=== PATIENT | female | born 2000 | race Caucasian/White ===

== ENCOUNTER 2025-08-21 11:28 | Outpatient (AMB) | payer OTHER, SELFPAY ==
--- OUTSIDE RECORDS SUMMARY | 2020-01-12 01:00 | XMS_ITS | Encounter Summary ---
Author Organization [facility] Address [address] [place] [address] Care Team Providers Care Websphere Message Broker Developer Name Role Phone Unavailable Primary Care Provider Unavailabl e Encounter Details Date Type Department Care Team (Latest Contact Info) Description 01/12/2020 Hospital Encounter TH HISTORIC ENCOUNTERS EASTERN CONVERSION ONLY Jesenia Palmer MD [address] [place] [address] Hyperprolactinemia (CMS/HCC V24) Social History [...] AM EST documented as of this encounter Plan of Treatment Not on file documented as of this encounter Procedures Procedure Name Priority Date/Time Associated Diagnosis Comments MR BRAIN WO AND W CONTRAST ([id number]) Routine 02/01/2020 9:00 PM EST documented in this encounter Results * MR BRAIN WO AND W CONTRAST ([id number]) (02/01/2020 9:00 PM EST) Anatomical Region Laterality Modality Magnetic Resonan ce 01/12/2020 3:30 PM EST Narrative 02/01/2020 9:01 PM EST EXAMINATION: [phone] - MR BRAIN W/O AND W CONT [...] Note Tyshawn Davis MD - 12/06/2020 EXAMINATION: [phone] - MR BRAIN W/O AND W CONT [...] Jan 12 2020 3:47P Jesenia Palmer MD IMG MRI PROCEDURES Final Resu lt documented in this encounter Visit Diagnoses Diagnosis Hyperprolactinemia (CMS/HCC V24) Other and unspecified anterior pituitary hyperfunction documented in this encounter
--- NOTE | 2025-08-21 11:32 | MHC.PC.OV ---
Vital Signs 08/21/25 11:38 Height 5 ft 11 in Weight 258 lb BMI 36.0 BP 114/90 H Blood Pressure Location Lt brachial Position Sitting Respiration 16 Pulse 104 H Pulse Source Pulse Oximeter Temp 97.2 F Temp Source Temporal Artery Scan Pulse Oximetry (%) 98 Oxygen Delivery Method Room Air Intake Visit Reasons: NEW PT Newsagent Required: No Accompanied by: Self / Same As Patient Allergies No Known Allergies Allergy (Verified 08/21/25 11:33) Medication List - Last Reconciled 08/21/25 by Olaf Taylor MD fluoxetine 20 mg PO DAILY hydroxyzine HCl 50 mg PO .qd PRN naltrexone microspheres ER (Vivitrol) 380 mg IM QMONTH Tobacco use date assessed: 08/21/25 Dental Screening Dental Screen Date: 08/21/25 Did you have a dental visit in the last 12 months?: Yes Did you have a dental problem in the last 6 months where you did not have access to dental care?: No Was dental information given to patient?: Patient has dentist HPI HPI Comments History of Present Illness Details The patient is a 25-year-old female presenting for the establishment of primary care services and management of her current medical conditions. The patient reports having been diagnosed with multiple concussions secondary to participating in sports such as basketball, softball, and volleyball, with the initial concussion occurring at age 16 and the most recent one approximately three to four months ago. As a result, she experiences persistent post-concussion syndrome, which includes symptoms of nausea and frequent headaches. She has a history of anxiety disorder and major depressive disorder. The patient reports current treatment with fluoxetine 20 mg and hydroxyzine as needed. Despite this, she scores high in depression and anxiety screening, indicating persistent mood and anxiety symptoms. In addition to her psychiatric history, she reports a history of substance use disorder, specifically benzodiazepines and alcohol. She has been sober for 45 days after attending a rehabilitation program following a relapse. There is no significant surgical history nor known allergies reported by the patient. Medical History: - Multiple concussions with post-concussion syndrome - Anxiety disorder - Major depressive disorder - Substance use disorder: benzodiazepines and alcohol Surgical History: - No prior surgical procedures Medications: - Fluoxetine 20 mg for depression and anxiety - Hydroxyzine as needed for anxiety - Monthly Vivitrol (naltrexone) injection for substance use disorder Family History: - Heart disease on both paternal and maternal sides - Type 2 diabetes on maternal side - No family history of cancer reported Social: - Currently couch-surfing; no stable housing - Seeking entry into sober living - Unemployed and actively looking for a job; interested in further education - History of tobacco use; currently vaping - Substance use history: past use of benzodiazepines (primarily Xanax) and alcohol, with a reported high quantity of alcohol consumption prior to sobriety - On EBT assistance for food [facility] Medical History (Updated 08/21/25 @ 11:57 by Olaf Taylor MD) Nondependent alcohol abuse, in remission Benzodiazepine abuse in remission Post concussion syndrome Homelessness Anxiety and depression Social History Housing: Homeless Housing Other:: couch surfing-want to get into sober living-applying Patient Tobacco Use Status: Never used Tobacco e-Cigarette/Vaping Use: Currently Using service: No Current occupational status: unemployed Questionnaire PHQ-9 Over the last 2 weeks, how often have you been bothered by any of the following problems? 1. Little interest or pleasure in doing things: more than half the days 2. Feeling down, depressed, or hopeless: more than half the days 3. Trouble falling or staying asleep, or sleeping too much: nearly every day 4. Feeling tired or having little energy: more than half the days 5. Poor appetite or overeating: more than half the days 6. Feeling bad about yourself - or that you are a failure or have let yourself or your family down: more than half the days 7. Trouble concentrating on things, such as reading the newspaper or watching television: more than half the days 8. Moving or speaking so slowly that other people could have noticed. Or the opposite - being so fidgety or restless that you have been moving around a lot more than usual: not at all 9. Thoughts that you would be better off or of hurting yourself in some way: several days Total score: 16 Depression Screening Interpretation: Positive Depression Screening Done: Yes 39697 - PHQ-9 Billing: Yes (Currently on Fluoxetine) Source: Developed by Drs. Andi Gross, Nadja Lovett, Jignesh Bajwa and colleagues, with an educational kameron from [employer]. Thrive Questionnaire Date Thrive assessed: 08/21/25 I am a: Patient What is your living situation today?: I do not have a steady places to live Within the past 12 months, did the food you bought not last and you didn't have the money to get more?: Never true Within the past 12 months, did you worry whether your food would run out before you got money to buy more?: Never true Do you have trouble paying for medicines?: No Do you have trouble getting transportation to medical appointments?: No Do you have trouble paying your heating and electricity bill?: No Do you have trouble taking care of your child, family member or friend?: No Do you have trouble with day-to-day activities such as bathing, preparing meals, shopping, managing finances, etc.?: Yes Are you currently unemployed and looking for a job?: Yes Are you interested in more education?: Yes Please select the resources that you would like help with: Housing/[facility] THRIVE Score: 1 AUDIT C Alcohol Use Questionnaire (AUDIT-C) 1. How often do you have a drink containing alcohol?: Never 3. How often do you have six or more drinks on one occasion?: Never Total Score: 0 Score Reviewed/Action Taken: Yes COREY-7 AMB Questionnaire COREY-7 Date COREY - 7 assessed: 08/21/25 Feeling nervous, anxious, or on edge: 3 = Nearly every day Not being able to stop or control worryin = Nearly every day Worrying too much about different things: 3 = Nearly every day Trouble relaxin = Nearly every day Being so restless that it is hard to sit still: 3 = Nearly every day Becoming easily annoyed or irritable: 3 = Nearly every day Feeling afraid as if something awful might happen: 3 = Nearly every day Total COREY-7 score (0-4 normal; 5-9 mild; 10-14 moderate; 15-21 severe): 21 Source: Developed by Drs. Andi Gross, Nadja Lovett, Jignesh Bajwa and colleagues, with an educational kameron from [employer]. COREY-7 Assessment Billing COREY-7 Assessment Tool: COREY-7 Assessment 33562 Review of Systems Const Details: - Neurologic: Reports persistent headaches - Gastrointestinal: Reports consistent nausea - Respiratory: Denies shortness of breath - Cardiovascular: Denies chest pain - Psychological: Reports feeling down, hopeless, and experiencing low energy; denies current thoughts of self-harm, but there have been recent thoughts of self-harm - Sleep: Reports trouble falling or staying asleep nearly every day - Genitourinary: No genitourinary symptoms reported All systems reviewed & are unremarkable except as reviewed in HPI and above Physical exam (Primary Care) Vital Signs: Last Vital Signs Temp 97.2 F 08/21/25 11:38 Pulse 104 H 08/21/25 11:38 Resp 16 08/21/25 11:38 BP 114/90 H 08/21/25 11:38 Pulse Ox 98 08/21/25 11:38 Oxygen Delivery Method Room Air 08/21/25 11:38 BMI result Body Mass Index 36.0 Tobacco/Smoking Status: Tobacco use Status Tobacco use date assessed 08/21/25 08/21/25 11:40 Patient Tobacco Use Status Never used Tobacco 08/21/25 11:40 e-Cigarette/Vaping Use Currently Using 08/21/25 11:40 PHQ-9: PHQ-9 Score PHQ-9: Total score 16 08/21/25 11:51 Depression Screening Interpretation: Positive Thrive Assessment: Date of Thrive Assessment Date Thrive assessed 08/21/25 08/21/25 11:51 Const Other: General: Alert and oriented, Well nourished, No acute distress. Eye: Pupils are equal, round and reactive to light, Intact accommodation, Extraocular movements are intact, Normal conjunctiva, Vision unchanged. HENT: Normocephalic, Atraumatic, Tympanic membranes are clear, Normal hearing, Oral mucosa is moist, No pharyngeal erythema, Ear canals patent. Respiratory: Lungs CTA bilaterally, No wheeze, Respirations are non-labored. Cardiovascular: Regular rate, Regular rhythm, S1 auscultated, S2 auscultated, No murmur, Good pulses equal in all extremities, Normal peripheral perfusion, No edema. Gastrointestinal: Soft, Non-tender, Non-distended, Normal bowel sounds, No organomegaly. Musculoskeletal: Normal range of motion, Normal strength, No tenderness, No swelling, No deformity, Normal gait. Integumentary: Warm, Dry, Forest, Intact. Neurologic: Alert, Oriented, Normal sensory, Normal motor function, No focal defects, Cranial Nerves II-XII are grossly intact, Normal deep tendon reflexes. Psychiatric: Cooperative, Appropriate mood & affect, Normal judgment. Coding Level of Care Code New Pt Level 3 (00250) Complex EM visit Add On G2211 Diagnoses Anxiety and depression F41.9; F32.A Homelessness Z59.00 Post concussion syndrome F07.81 Benzodiazepine abuse in remission F13.11 Nondependent alcohol abuse, in remission F10.11 Additional Codes COREY-7 Assessment Billing - COREY-7 Assessment Tool: COREY-7 Assessment 16169 ([id number]) PHQ-9 - 20262 - PHQ-9 Billing: Yes ([id number]) Assessment & Plan Assessment & Plan (1) Anxiety and depression: Comment: - Current medication regimen includes fluoxetine and hydroxyzine. - Plan to consult psychiatry for a more detailed evaluation and potential medication adjustment. Code(s): F41.9 - Anxiety disorder, unspecified; F32.A - Depression, unspecified Category: Medical (2) Homelessness: Code(s): Z59.00 - Homelessness unspecified Category: Social Hx (3) Post concussion syndrome: Comment: - Discussed the need for neurologist follow-up, potentially at [facility] for specialized care. - Re-assessment planned in six months to monitor symptom progression and effectiveness of any interventions. Code(s): F07.81 - Postconcussional syndrome Category: Medical (4) Benzodiazepine abuse in remission: Comment: - Benzodiazepine and Alcohol: - Maintenance with Vivitrol to support sobriety. - Recommended continuation in substance use programs and potential admission into sober living environments to support recovery. (Will have our mental health social worker reach out) Code(s): F13.11 - Sedative, hypnotic or anxiolytic abuse, in remission Category: Medical (5) Nondependent alcohol abuse, in remission: Comment: - Benzodiazepine and Alcohol: - Maintenance with Vivitrol to support sobriety. - Recommended continuation in substance use programs and potential admission into sober living environments to support recovery. (Will have our mental health social worker reach out) Code(s): F10.11 - Alcohol abuse, in remission Category: Medical Plan: Health maintenance: - Discussed the importance of completing routine blood work to establish a baseline, including screening for hepatitis, HIV, syphilis, and cholesterol levels. - Recommended maintaining a healthy lifestyle with regular follow-ups for physical and mental health. Patient was informed and verbally consented to the use of an ambient scribe for clinic note documentation during this visit. Plan During the visit, I discussed with the patient the importance of managing post-concussion syndrome by consulting with a neurologist. We reviewed her heightened anxiety and depression scores, suggesting the current meditative approach might be inadequate, and thus a psychiatric consultation was proposed. We emphasized the significance of Vivitrol injections in maintaining sobriety. Ensured the patient understands that quitting vaping is essential for her overall well-being, offering cessation support if desired. We highlighted the importance of stabilizing her housing, offering assistance to find resources for sober living, subject to mental health social worker consultation. The detail of proposed blood work was thoroughly explained to address baseline health markers. Orders: Orders Comprehensive Met. Panel Today Z76.89 - Persons encountering health services in other specified circumstances Hemoglobin A1c Today Z76.89 - Persons encountering health services in other specified circumstances Lipid Panel Today Z76.89 - Persons encountering health services in other specified circumstances TSH reflex Free T4 Today Z76.89 - Persons encountering health services in other specified circumstances Complete Blood Count Auto Diff Today Z76.89 - Persons encountering health services in other specified circumstances Hepatitis A,B,C Profile Today Z76.89 - Persons encountering health services in other specified circumstances HIV Ab/Ag Today Z76.89 - Persons encountering health services in other specified circumstances Syphilis Screen Today Z76.89 - Persons encountering health services in other specified circumstances Vitamin D 25-OH Total Today Z76.89 - Persons encountering health services in other specified circumstances Referrals Psychiatry Referral F32.A - Depression, unspecified, F41.9 - Anxiety disorder, unspecified Patient Instructions: - Meet with a neurologist to manage post-concussion symptoms. - Arrange psychiatric evaluation to optimize treatment for anxiety and depression. - Continue adherence to monthly Vivitrol injections to aid in maintaining sobriety. - Prioritize finding stable, sober living arrangements. - Complete suggested blood work. - Pursue cessation of vaping as part of overall health improvement strategy. - Follow guidance for follow-ups every six months, or sooner if symptoms worsen.
[2025-08-21 11:38] VITALS: BP 114/90; PULSE 104; RESP 16; TEMP 36.2; O2SAT 98; BMI 36.0
--- OUTSIDE RECORDS SUMMARY | 2025-08-21 14:23 | XMS_ITS | Clinical Summary ---
Author Organization [facility] Address [address] [place] [address] Phone Care Team Providers Care Hand Surgeon Name Role Phone Christopher Wheeler MD Primary Care Provider [phone] Allergies No known active allergies Medical History Medical History Date Comments Migraines Post concussive syndrome Anxiety Depression Social History Tobacco Use Types Packs/Day Years Used Date Smoking Tobacco: Never Smokeless Tobacco: Never Tobacco Cessation:Counseling Given: Not Answered Alcohol Use Standard Drinks/Week Comments Yes 0 (1 standard drink = 0.6 oz pur e alcohol) occas Comments Unknown Sex and Gender Information Value Date Recorded Sex Assigned at Not on file Legal Sex Female 8:37 PM EDT Gender Identity Not on file Sexual Orientation Not on file Obstetrics History Last Filed Vital Signs Vital Sign Reading Time Taken Comments Blood Pressure 106/56 08/28/2023 5:30 AM EDT Pulse 80 08/28/2023 5:30 AM EDT Temperature 36.9 C (98.5 F) 08/28/2023 3:39 AM EDT Respiratory Rate 16 08/28/2023 5:30 AM EDT Oxygen Saturation 97% 08/28/2023 5:30 AM EDT Inhaled Oxygen Concentration - - Weight 118 kg (260 lb) 08/28/2023 3:39 AM EDT Height 180.3 cm (5' 11 ) 08/28/2023 3:39 AM EDT Body Mass Index 36.26 08/28/2023 3:39 AM EDT Plan of Treatment Health Maintenance Due Date Last Done Comments Gonorrhea/Chlamydia Screening 2002 IPV Vaccines (2 of 3 - 4-dose series) 04/01/2006 03/04/2006 HIV Screening 01/07/2020 Hepatitis C Screening 01/07/2020 Social Influencers of Health Screening 01/07/2020 Hepatitis B Vaccines (1 of 3 - 19+ 3-dose series) 2021 Cervical Cancer Screening: Pap Smear 2023 DTaP,Tdap,and Td Vaccines (4 - Td or Tdap) 06/14/2023 06/14/2013, 03/04/2006, 05/16/2003 Depression Screening 11/29/2024 COVID-19 Vaccine ( - 2024- season) 2025 07/08/2022, 12/18/2021, 01/10/2021, Additional history exists Influenza Vaccine (#1) 2025 , 09/13/2020, 09/15/2019, Additional history exists RSV Immunization Adult Patients (1 - 1-dose 75+ series) 2077 Pneumococcal Vaccine: Pediatrics (0 to 5 Years) and At-Risk Patients (6 to 49 Years) Completed 08/14/2003, 05/16/2003 MMR Vaccines Completed 03/04/2006, 05/16/2003 Hepatitis A Vaccines Completed 03/16/2008, 03/09/20 Varicella Vaccines Completed 05/22/2011, 02/14/2003 HPV Vaccines Completed 06/14/2015, 06/13/2014 Meningococcal ACWY Vaccine Completed 09/07/2018, Meningococcal B Vaccine Completed 05/15/2020, 10/18 HIB Vaccines Aged Out No longer eligi ble based on patient's age to complete this topic RSV Immunization Patients Under 20 months Aged Out No longer eligible based on patient's age to complete this topic Insurance [employer] Care Teams Hand Surgeon Relationship Specialty Start Date End Date Christopher Wheeler MD [address] [place] [address] PCP - General Internal Medicine 02/04/23
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
== END 2025-08-21 12:01 | disposition home or self-care (01) ==
LOC: HO.HMCHD 11:29
PROVIDERS: PCP Student in an Organized Health Care Education/Training Program; Visit Provider Student in an Organized Health Care Education/Training Program
DX: F41.9 Anxiety disorder, unspecified (principal); F32.A Depression, unspecified; Z59.00 Homelessness unspecified; F07.81 Postconcussional syndrome; F13.11 Sedative, hypnotic or anxiolytic abuse, in remission; F10.11 Alcohol abuse, in remission

== ENCOUNTER 2025-08-21 11:28 | Outpatient (REF) | payer OTHER, SELFPAY ==
[2025-08-21 12:26] LABS: MANUAL DIFF FLAG NO
[2025-08-21 12:41] LABS: Hematocrit 47.9 % (37.0-47.0); Hemoglobin 17.2 g/dl (12.0-16.0); Imm Gran Abs Auto 0.04 X10*3/uL (0.00-0.03); Imm Gran Pct Auto 0.5 % (0.0-0.4); Lymphocytes Absolute Auto 2.0 X10*3/uL (1.2-4.9); Mean Corpuscular HGB Conc 35.9 g/dl (31.0-35.0); Mean Corpuscular Hemoglobin 31.7 pg (27.0-33.0); Mean Corpuscular Volume 88.4 fL (80.0-98.0); NRBC Abs Auto 0.000 X10*3/uL (0.0-0.012); NRBC Pct Auto 0.0 /100WBC (0.0-0.2); Platelet Count 310 X10*3/uL (160-400); Red Blood Count 5.42 X10*6/uL (4.20-5.50); White Blood Count 8.6 X10*3/uL (4.8-10.8)
[2025-08-21 13:43] LABS: Anion Gap 12 (12-20)
[2025-08-21 13:47] LABS: Alanine Aminotransferase 52 U/L (0-31); Albumin Level 4.7 g/dL (3.5-5.0); Alkaline Phosphatase 72 U/L (39-117); Aspartate Amino Transferase 41 U/L (5-31); Blood Urea Nitrogen 7 mg/dL (9-16); Calcium 9.8 mg/dL (8.4-10.2); Carbon Dioxide 25 mmol/L (22-29); Chloride 107 mmol/L (96-108); Cholesterol 194 mg/dL (<200); Estimated Glomerular Filt Rate > 60; HDL Cholesterol 43 mg/dL (>40); Potassium 4.3 mmol/L (3.3-5.1); Sodium 140 mmol/L (135-145); Total Protein 7.3 g/dL (6.5-8.0); Triglycerides 245 mg/dL (<150)
[2025-08-22 08:18] LABS: HBS Num1 10.41 mIU/mL (0-7.99); HBc Num1 0.13 S/CO (0.00-0.79); HBsAGNum1 0.43 S/CO (0.00-0.99); HIV Num 1 0.08 S/CO (0.00-0.99); Hepatitis A Antibody IgM 0.24 Index (0-0.79); Hepatitis B Surface Antigen Negative (Negative); ~HepC Num1 0.15 S/CO (0.00-0.79); ~Hepatitis A Antibody IgM Nonreactive (Nonreactive); ~Hepatitis C Antibody Nonreactive (Nonreactive)
[2025-08-22 09:10] LABS: Syphilis Screen Nonreactive (Nonreactive)
[2025-08-22 10:17] LABS: HBS Num2 9.35 mIU/mL (0-7.99)
[2025-08-22 10:18] LABS: HBS Num3 10.01 mIU/mL (0-7.99); ~Hepatitis B Surface Antibody GRAYZONE (Nonreactive)
== END 2025-08-21 11:29 | disposition home or self-care (01) ==
LOC: HO.LAB 11:28
PROVIDERS: PCP Student in an Organized Health Care Education/Training Program; Visit Provider Student in an Organized Health Care Education/Training Program
DX: Z76.89 Persons encountering health services in other specified circumstances (principal); F41.9 Anxiety disorder, unspecified; F32.A Depression, unspecified; F07.81 Postconcussional syndrome; F13.11 Sedative, hypnotic or anxiolytic abuse, in remission; F10.11 Alcohol abuse, in remission; Z59.00 Homelessness unspecified; Z79.899 Other long term (current) drug therapy
CPT/HCPCS: 36415; 80053; 80061; 82306; 83036; 84443; 85025; 86704; 86706; 86709; 86780; 86803; 87340; 87389; 96127

== ENCOUNTER 2025-11-07 23:26 | Emergency (ER) | payer OTHER, SELFPAY ==
--- OUTSIDE RECORDS SUMMARY | 2020-01-12 | XMS_ITS | Encounter Summary ---
Author Organization [facility] Address [address] [place] [address] Care Team Providers Care Schedule Hanger Name Role Phone Unavailable Primary Care Provider Unavailabl e Encounter Details Date Type Department Care Team (Latest Contact Info) Description 01/12/2020 Hospital Encounter TH HISTORIC ENCOUNTERS EASTERN CONVERSION ONLY Jesenia Palmer MD [address] [place] [address] Hyperprolactinemia (CMS/HCC V24) Social History Tobacco Use Types Packs/Day Years Used Date Smoking Tobacco: Never Smokeless Tobacco: Never Alcohol Use Standard Drinks/Week Comments Yes 0 (1 standard drink = 0.6 oz pur e alcohol) occas Comments Unknown Sex and Gender Information Value Date Recorded Sex Assigned at Not on file Legal Sex Female 8:37 PM EDT Gender Identity Not on file Sexual Orientation Not on file COVID-19 Exposure Response Date Recorded In the last 10 days, have yo u been in contact with someone who was confirmed or suspected to have Coronavirus/COVID-19? No / Unsure 02/04/2023 8:52 AM EST documented as of this encounter Functional Status * Calculated C-SSRS Risk Score (Lifetime/Recent) Answer Date of Assessment Author No Risk Indicated 08/28/2023 3:38 AM EDT Sepideh Gray RN * [place] Suicide Severity Rating Scale (Screener/Recent Self-Report) Question Answer Date of Assessment Author 1. Wish to be (Past 1 Month) No 08/28/2023 3:38 AM EDT Chandu Norwood RN 2. Non-Specific Active Suicidal Thoughts (Past 1 Month) No 08/28/2023 3:38 AM EDT Chandu Norwood RN 6. Suicidal Behavior (Lifetime) No 08/28/2023 3:38 AM EDT Chandu Norwood RN documented as of this encounter Plan of Treatment Not on file documented as of this encounter Procedures Procedure Name Priority Date/Time Associated Diagnosis Comments MR BRAIN WO AND W CONTRAST ([id number]) Routine 02/01/2020 9:00 PM EST documented in this encounter Results * MR BRAIN WO AND W CONTRAST ([id number]) (02/01/2020 9:00 PM EST) Anatomical Region Laterality Modality Magnetic Resonan ce 01/12/2020 3:30 PM EST Narrative 02/01/2020 9:01 PM EST EXAMINATION: [phone] - MR BRAIN W/O AND W CONT WORKING DIAGNOSIS: prolactinoma ADDITIONAL HISTORY: 19 years old Female, prolactinoma. TECHNIQUE: Using a 1.5 Audrey superconducting magnet, sagittal T1, axial T2, axial FLAIR, postcontrast axial T1 and axial diffusion weighted images were obtained through the brain. Additionally, coronal T2, pre- and postcontrast coronal T1 and postcontrast sagittal T1 images through the sella turcica were obtained. COMPARISON: None. OBSERVATIONS: Pituitary gland: The pituitary gland is normal in size and contour. There is normal homogeneous enhancement of the pituitary gland and infundibulum. There is no sellar or suprasellar mass. The optic chiasm and the cavernous sinus region appear unremarkable. Hemorrhage: No intracranial hemorrhage. Brain: Parson-white matter differentiation appears appropriate. Cisterns and sulci are intact. No mass. No restricted diffusion to suggest acute infarction. The corpus callosum, tectum and posterior fossa are unremarkable. There is no evidence for abnormal enhancement. Ventricles: No hydrocephalus. Vasculature: There is appropriate signal void within the central intracranial vasculature. Bones: T2 hyperintensity within the left petrous apex likely representing fluid within pneumatized left petrous apex. Paranasal sinuses: Small mucous retention cyst within the left maxillary sinus and left side of the sphenoid sinus.. IMPRESSION: Unremarkable MRI of the brain and pituitary gland. No evidence for pituitary mass. INTERPRETED BY: FERMÍN DAVIS MD PhD on Jan 12 2020 3:30P Transcribed by: on Jan 12 2020 3:30P Approved Electronically by: FERMÍN DAVIS MD PhD on Jan 12 2020 3:47P Procedure Note Tyshawn Davis MD - 12/06/2020 EXAMINATION: [phone] - MR BRAIN W/O AND W CONT WORKING DIAGNOSIS: prolactinoma ADDITIONAL HISTORY: 19 years old Female, prolactinoma. TECHNIQUE: Using a 1.5 Audrey superconducting magnet, sagittal T1, axial T2, axial FLAIR, postcontrast axial T1 and axial diffusion weighted images were obtained through the brain. Additionally, coronal T2, pre- and postcontrast coronal T1 and postcontrast sagittal T1 images through the sella turcica were obtained. COMPARISON: None. OBSERVATIONS: Pituitary gland: The pituitary gland is normal in size and contour. There is normal homogeneous enhancement of the pituitary gland and infundibulum. There is no sellar or suprasellar mass. The optic chiasm and the cavernous sinus region appear unremarkable. Hemorrhage: No intracranial hemorrhage. Brain: Parson-white matter differentiation appears appropriate. Cisterns and sulci are intact. No mass. No restricted diffusion to suggest acute infarction. The corpus callosum, tectum and posterior fossa are unremarkable. There is no evidence for abnormal enhancement. Ventricles: No hydrocephalus. Vasculature: There is appropriate signal void within the central intracranial vasculature. Bones: T2 hyperintensity within the left petrous apex likely representing fluid within pneumatized left petrous apex. Paranasal sinuses: Small mucous retention cyst within the left maxillary sinus and left side of the sphenoid sinus.. IMPRESSION: Unremarkable MRI of the brain and pituitary gland. No evidence for pituitary mass. INTERPRETED BY: FERMÍN DAVIS MD PhD on Jan 12 2020 3:30P Transcribed by: on Jan 12 2020 3:30P Approved Electronically by: FERMÍN DAVIS MD PhD on Jan 12 2020 3:47P Jesenia Palmer MD IM MRI PROCEDURES Final Resu lt documented in this encounter Visit Diagnoses Diagnosis Hyperprolactinemia (CMS/HCC V24) Other and unspecified anterior pituitary hyperfunction documented in this encounter
[2025-11-07 23:33] VITALS: BP 129/70; PULSE 87; RESP 20; TEMP 36.4; O2SAT 98; BMI 34.9
[2025-11-07 23:46] LABS: MANUAL DIFF FLAG NO
[2025-11-08 00:01] LABS: Hematocrit 46.0 % (37.0-47.0); Hemoglobin 16.6 g/dl (12.0-16.0); Imm Gran Abs Auto 0.03 X10*3/uL (0.00-0.03); Imm Gran Pct Auto 0.3 % (0.0-0.4); Lymphocytes Absolute Auto 2.0 X10*3/uL (1.2-4.9); Mean Corpuscular HGB Conc 36.1 g/dl (31.0-35.0); Mean Corpuscular Hemoglobin 31.7 pg (27.0-33.0); Mean Corpuscular Volume 87.8 fL (80.0-98.0); NRBC Abs Auto 0.000 X10*3/uL (0.0-0.012); NRBC Pct Auto 0.0 /100WBC (0.0-0.2); Platelet Count 290 X10*3/uL (160-400); Red Blood Count 5.24 X10*6/uL (4.20-5.50); White Blood Count 10.0 X10*3/uL (4.8-10.8)
[2025-11-08 00:09] LABS: Alanine Aminotransferase 50 U/L (0-31); Albumin Level 4.4 g/dL (3.5-5.0); Alkaline Phosphatase 68 U/L (39-117); Anion Gap 14 (12-20); Aspartate Amino Transferase 36 U/L (5-31); Blood Urea Nitrogen 12 mg/dL (9-16); Calcium 9.5 mg/dL (8.4-10.2); Carbon Dioxide 26 mmol/L (22-29); Chloride 103 mmol/L (96-108); Creatinine Clr Calc Pharmacy 139.4; Estimated Glomerular Filt Rate > 60; Potassium 4.1 mmol/L (3.3-5.1); Sodium 139 mmol/L (135-145); Total Protein 7.3 g/dL (6.5-8.0)
--- NOTE | 2025-11-08 00:29 | ED.HA ---
HPI - Headache General Chief Complaint: Headache Stated Complaint: Headache Time Seen by Provider: 11/08/25 00:22 Source: patient Mode of arrival: ambulatory Limitations: no limitations History of Present Illness ED Provider: Dr. Viridiana Davis HPI Narrative: Patient comes in the emergency room complaining of a headache for 4 days. Patient has been using extending without relief. Patient states that she has light sensitivity and also the sound bothers her. Patient states that she has history of post concussive headaches. However, patient's last concussion was over 8 months ago. Patient denies any recent head injuries. Complaining of nausea, denies any neurological deficits. Related Data Home Medications ?Medication ?Instructions ?Recorded ?Confirmed fluoxetine 20 mg capsule 20 mg PO DAILY 08/21/25 08/21/25 hydroxyzine HCl 50 mg tablet 50 mg PO .qd PRN 08/21/25 08/21/25 naltrexone microspheres 380 mg 380 mg IM QMONTH 08/21/25 08/21/25 intramuscular suspension,extended release (Vivitrol) Previous Rx's ?Medication ?Instructions ?Recorded ketorolac 10 mg tablet 10 mg PO TID PRN pain #12 tabs 11/08/25 metoclopramide HCl 5 mg tablet 5 mg PO Q8H PRN nausea and 11/08/25 (Reglan) vomiting #12 tabs Allergies Allergy/AdvReac Type Severity Reaction Status Date / Time No Known Allergies Allergy Verified 11/07/25 23:36 Review of Systems Review of Systems: Constitutional : No Weight loss, No Fever, No Chills, No Night Sweats, No Fatigue, No Malaise ENT/Mouth : complaining of sensitivity to sounds, No Hearing loss, No Ear Pain, No Nasal Congestion, No Sinus Pain, No Hoarseness, No sore throat, No Rhinorrhea, No Swallowing Difficulty Eyes: Complaining of photophobia,No Eye Pain, No Swelling, No Redness, No Foreign Body, No Discharge, No Vision Changes Cardiovascular : No Chest Pain, No SOB, No Dyspnea on Exertion, No Orthopnea, No Edema, No Palpitations Respiratory : No Cough, No Sputum, No Wheezing, No Smoke Exposure, No Dyspnea Gastrointestinal : No Nausea, No Vomiting, No Diarrhea, No Constipation, No abdominal Pain, No Hematochezia, No Melena Genitourinary : no irregular bleeding, No Dysuria, No Urinary Frequency, No Hematuria, No Urinary Incontinence, No Urgency, No Flank Pain, No Urinary Flow Changes, No Hesitancy Musculoskeletal : No joint pain, No Myalgias, No Joint Swelling Skin : No Skin Lesions, No rash Neuro : No Weakness, No Numbness, No Paresthesias, No Loss of Consciousness, No Dizziness, complaining of a Headache for 4 days Psych : No Anxiety/Panic, No Depression, No SI/HI/AH/VH, No Social Issues, Heme/Lymph: No Bruising, No Bleeding,No Lymphadenopathy Endocrine : No Polyuria, No Polydipsia, No Temperature Intolerance [facility] Past Medical History Medical History Nondependent alcohol abuse, in remission Benzodiazepine abuse in remission Post concussion syndrome Homelessness Anxiety and depression Social History Social History Housing: Homeless Housing Other:: [employer]-want to get into sober living-applying Patient Tobacco Use Status: Never used Tobacco Smoked in Last 30 Days: Yes e-Cigarette/Vaping Use: Currently Using Use of substances other than those prescribed or required for medical reasons: No Advance Directives: No Advance Directives Information Provided: Yes Patient : No service: No Current occupational status: unemployed Physical Exam Exam: Exam: Appearance: Alert. Oriented X3. No acute distress. Eyes: Pupils equal, round and reactive to light. wearing sunglasses due to photophobia ENT: Pharynx normal. Neck: Normal inspection. Neck supple. No lymph nodes noted. No crepitus CVS: Normal heart rate and rhythm. Pulses normal. Normal S1 and S2 Respiratory: No respiratory distress. Breath sounds normal. No Wheezing. No rales Abdomen: Soft and nontender. No rigidity. No distention. Skin: Skin warm and dry. Normal skin color. Normal skin turgor. Extremities: No lower extremity edema. No Lacerations. No Rash Neuro: Oriented X 3. No motor deficit. No sensory deficit. Moving all extremities. No slurred speech. CN 2 through 12 grossly intact Psych: calm, cooperative, normal affect Vital Signs: Vital Signs: Last Vital Signs Temp 97.9 F 11/08/25 01:11 Pulse 78 11/08/25 01:11 Resp 16 11/08/25 01:11 BP 130/79 11/08/25 01:11 Pulse Ox 98 11/08/25 01:11 O2 Del Method Room Air 12/11/25 01:11 BMI result Body Mass Index 34.9 Course Course Course Narrative: patient reports having a headache, patient most likely having a migraine headache rather than a postconcussive headache, concussion happened more than 8 months ago patient receiving IV fluids, Toradol, Benadryl, Reglan. Medications Administered Discontinued Medications Generic Name Dose Route Start Last Admin Trade Name Freq PRN Reason Stop Dose Admin Diphenhydramine HCl 25 mg 11/08/25 00:28 11/08/25 01:15 Diphenhydramine Hcl 50 Mg/Ml Vial IVPUSH 11/08/25 00:29 25 mg ONCE ONE Administration Sodium Chloride 1,000 mls @ 999 mls/hr 11/08/25 00:28 11/08/25 01:11 Ns IVCONT 11/08/25 01:28 999 mls/hr .Q1H1M ONE Administration Ketorolac Tromethamine 30 mg 11/08/25 00:28 11/08/25 01:15 Ketorolac Tromethamine 30 Mg/Ml Vial IVPUSH 11/08/25 00:29 30 mg ONCE ONE Administration Metoclopramide HCl 10 mg 11/08/25 00:28 11/08/25 01:15 Metoclopramide Hcl 10 Mg/2 Ml Vial IVPUSH 11/08/25 00:29 10 mg ONCE ONE Administration Medical Decision Making Medical Decision Making [facility] Narrative: my interpretation of labs: No significant abnormality in patient's hematology and chemistry, hCG negative patient states that with the above-mentioned medication, the headache nearly resolved, patient feeling much better Lab Data [facility] Lab Attestation statement: I reviewed the patient's lab results. 11/07/25 23:41 11/07/25 23:41 Labs: Lab Results 11/07/25 Range/Units 23:41 WBC 10.0 (4.8-10.8) X10*3/uL RBC 5.24 (4.20-5.50) X10*6/uL Hgb 16.6 H (12.0-16.0) g/dl Hct 46.0 (37.0-47.0) % MCV 87.8 (80.0-98.0) fL MCH 31.7 (27.0-33.0) pg MCHC 36.1 H (31.0-35.0) g/dl RDW 11.8 (11.0-16.0) % Plt Count 290 (160-400) X10*3/uL MPV 8.2 L (9.4-12.3) fL Immature Gran % (Auto) 0.3 (0.0-0.4) % Neut % (Auto) 71.7 (45-73) % Lymph % (Auto) 19.9 L (20-40) % Harmon % (Auto) 6.1 (2-11) % Eos % (Auto) 1.5 (0-4) % Baso % (Auto) 0.5 (0-2) % Lymph # (Auto) 2.0 (1.2-4.9) X10*3/uL Harmon # (Auto) 0.6 (0.1-1.2) X10*3/uL Eos # (Auto) 0.2 (0.0-0.4) X10*3/uL Baso # (Auto) 0.1 (0.0-0.2) X10*3/uL Abs Immat Gran (auto) 0.03 (0.00-0.03) X10*3/uL Absolute Neuts (auto) 7.2 (2.0-8.3) x10*3/uL Absolute Nucleated RBC 0.000 (0.0-0.012) X10*3/uL Nucleated RBC % (auto) 0.0 (0.0-0.2) /100WBC Sodium 139 (135-145) mmol/L Potassium 4.1 (3.3-5.1) mmol/L Chloride 103 (96-108) mmol/L Carbon Dioxide 26 (22-29) mmol/L Anion Gap 14 (12-20) BUN 12 (9-16) mg/dL Creatinine 0.87 (0.5-1.4) mg/dL Estim Creat Clear Calc 139.4 Estimated GFR > 60 Random Glucose 149 H (60-115) mg/dL Calcium 9.5 (8.4-10.2) mg/dL Total Bilirubin 0.4 (0.0-1.0) mg/dL AST 36 H (5-31) U/L ALT 50 H (0-31) U/L Alkaline Phosphatase 68 (39-117) U/L Total Protein 7.3 (6.5-8.0) g/dL Albumin 4.4 (3.5-5.0) g/dL Beta HCG, Quant < 2 mIU/mL Influenza Type A (PCR) NEGATIVE (Negative) Influenza Type B (PCR) NEGATIVE (Negative) RSV RNA Qual (PCR) NEGATIVE (Negative) SARS-CoV-2 RNA (RT-PCR) NEGATIVE (Negative) Discharge Plan Discharge Clinical Impression: Migraine Patient Disposition: Home, Self-Care Instructions: Migraine Headache (ED) Additional Instructions: Please follow-up with your primary care physician tomorrow. If you have any worsening or new symptoms, please return to the emergency room or call 911 Prescriptions: New ketorolac 10 mg tablet 10 mg PO TID PRN (Reason: pain) Qty: 12 0RF Rx Instructions: do not take this medication with NSAIDs such as ibuprofen. Only Tylenol if needed metoclopramide HCl [Reglan] 5 mg tablet 5 mg PO Q8H PRN (Reason: nausea and vomiting) Qty: 12 0RF Rx Instructions: take together with ketorolac PRN migraine headache and nausea No Action hydroxyzine HCl 50 mg tablet 50 mg PO .qd PRN Rx Instructions: Takes up to 50 mg as needed daily fluoxetine 20 mg capsule 20 mg PO DAILY Vivitrol 380 mg suspension,extended rel recon 380 mg IM QMONTH Stand Alone Forms: Work/School Release Print Language: Norwegian
[2025-11-08 00:50] LABS: Resp Syncy Virus RNA Qual PCR NEGATIVE (Negative); SARS COV2 PCR INHOUSE NEGATIVE (Negative)
[2025-11-08 01:11] VITALS: BP 130/79; PULSE 78; RESP 16; TEMP 36.6; O2SAT 98
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
--- OUTSIDE RECORDS SUMMARY | 2025-11-08 01:21 | XMS_ITS | Clinical Summary ---
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 Role Phone Christopher Wheeler MD Primary Care Provider [phone] Allergies No known active allergies Medical History [...] on file Sexual Orientation Not on file Last Filed Vital Signs Vital Sign Reading [...] Depression Screening 11/29/2024 COVID-19 Vaccine ( - season) 2025 07/08/2022, 12/18/2021, 01/10/2021, Additional history exists Influenza Vaccine (#1) 2025 , 09/13/2020, 09/15/2019, Additional history exists RSV Immunization Adult Patients (1 - 1-dose 75+ series) 2077 Pneumococcal Vaccine: Pediatrics (0 to 5 Years) and At-Risk Patients (6 to 49 Years) Completed 08/14/2003, 05/16/2003 MMR Vaccines Completed 03/04/2006, 05/16/2003 Hepatitis A Vaccines Completed 03/16/2008, 03/09/20 07 Varicella Vaccines Completed 05/22/2011, 02/14/2003 HPV Vaccines Completed 06/14/2015, 06/13/2014 Meningococcal ACWY Vaccine Completed 09/07/2018, Meningococcal B Vaccine Completed 05/15/2020, 10/18 HIB Vaccines Aged Out No longer eligi ble based on patient's age to complete this topic RSV Immunization Patients Under 20 months Aged Out No longer eligible based on patient's age to complete this topic Insurance [employer] Care 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
[2025-11-08 02:32] VITALS: BP 130/79; PULSE 78; RESP 16; TEMP 36.6; O2SAT 98
== END 2025-11-08 02:32 | disposition home or self-care (01) ==
PROVIDERS: Emergency Provider Emergency Medicine; PCP Student in an Organized Health Care Education/Training Program
DX: G43.909 Migraine, unspecified, not intractable, without status migrainosus (principal); Z79.899 Other long term (current) drug therapy; Z03.818 Encounter for observation for suspected exposure to other biological agents ruled out
CPT/HCPCS: 80053; 84702; 85025; 87637; 96374; 96375; 99284; J1200; J1885; J2765